=== PATIENT | female | born 2000 ===

== ENCOUNTER 2023-02-05 15:12 | Outpatient (REF) | payer MEDICAID, OTHER, SELFPAY ==
[2023-02-07 21:52] LABS: C. trachomatis RNA TMA NOT DETECTED (NOT DETECTED); Candida glabrata RNA NOT DETECTED (NOT DETECTED); Candida species RNA NOT DETECTED (NOT DETECTED); N. gonorrhoeae RNA TMA NOT DETECTED (NOT DETECTED); Trichomonas vaginalis RNA NOT DETECTED (NOT DETECTED)
[2023-02-13 17:29] LABS: HPV 16 RNA NOT DETECTED (NOT DETECTED); HPV mRNA E6/E7 rflx Detected (Not Detected)
== END 2023-02-05 15:13 | disposition home or self-care (01) ==
LOC: HO.HHCLNP 15:12
PROVIDERS: Visit Provider Internal Medicine
DX: R10.2 Pelvic and perineal pain (principal); N93.8 Other specified abnormal uterine and vaginal bleeding
CPT/HCPCS: 36415; 81513; 87481; 87491; 87591; 87624; 87625; 87661; 88142

== ENCOUNTER 2023-03-20 16:25 | Outpatient (REF) | payer MEDICAID, OTHER, SELFPAY ==
--- NOTE | ~2023-03-20 | US_ITS ---
EXAMINATION: US PELVIS CLINICAL INFORMATION: Dysfunctional uterine bleeding. Pelvic pain. Last menstrual period 2 weeks ago. IUD. COMPARISON: None available. TECHNIQUE: Ultrasound of the pelvis is performed using both transabdominal and transvaginal transducers along with Doppler. Transvaginal imaging is performed due to inadequate visualization transabdominally. FINDINGS: The uterus is heterogeneous and measures 7.9 x 3.8 x 5.6 cm. 2.4 x 1.7 x 2.0 cm left uterine fibroid. IUD within the endometrial cavity. Visualization of the endometrium is limited due to shadowing from the IUD. No significant free fluid. Left ovary measures 3.7 x 1.4 x 1.5 cm, volume 4.1 mL and is unremarkable. Right ovary measures 4.8 x 2.4 x 2.1 cm, volume 12.7 mL. Complex, thick-walled 1.8 x 1.5 x 2.0 cm right ovarian cyst, possibly a corpus luteum. US/US pelvic and transvaginal IMPRESSION: 1. 2.4 cm left uterine fibroid. 2. IUD within the endometrial cavity. Visualization of the endometrium is limited due to shadowing from the IUD. 3. Complex, thick-walled 1.8 x 1.5 x 2.0 cm right ovarian cyst, possibly a corpus luteum. Recommend followup ultrasound in 6-8 weeks.
== END 2023-03-20 16:26 | disposition home or self-care (01) ==
LOC: HO.US 16:25
PROVIDERS: Visit Provider Internal Medicine
DX: R10.2 Pelvic and perineal pain (principal); N93.8 Other specified abnormal uterine and vaginal bleeding
CPT/HCPCS: 76830; 76856

== ENCOUNTER 2023-05-22 16:05 | Outpatient (REF) | payer MEDICAID, OTHER, SELFPAY ==
--- NOTE | ~2023-05-22 | US_ITS ---
EXAMINATION: US PELVIS CLINICAL INFORMATION: Follow up ovarian cyst, IUD. Patient denies pain. COMPARISON: None available. TECHNIQUE: Ultrasound of the pelvis is performed using both transabdominal and transvaginal transducers along with Doppler. Transvaginal imaging is performed due to inadequate visualization transabdominally. FINDINGS: Uterus measures 8.6 x 3.4 x 6.3 cm, volume 96.45 mL. Previously identified 2.4 cm fibroid is not visualized on the current exam. IUD present in the endometrial cavity. Shadowing from the IUD limits visualization in the endometrium. Visualized endometrial thickness is 12 mm. Left ovary measures 2.9 x 2.3 x 1.7 cm, volume 5.94 mL and is unremarkable Right ovary measures 3.9 x 2.9 x 2.3 cm, volume 13.62 mL. Right ovarian 1.7 x 1.4 x 0.8 cm mildly complex cyst previously measured 1.8 x 1.5 x 2.0 cm and has decreased in size, characteristic of a resolving physiologic cyst such as a corpus luteum. No significant free fluid. US/US pelvic and transvaginal IMPRESSION: 1. Previously identified 2.4 cm fibroid is not visualized on the current exam. 2. IUD present within the endometrial cavity. Shadowing from the IUD limits visualization of the endometrium. Visualized endometrial thickness is 12 mm. 3. Right ovarian 1.7 x 1.4 x 0.8 cm mildly complex cyst previously measured 1.8 x 1.5 x 2.0 cm and has decreased in size, characteristic of a resolving physiologic cyst such as a corpus luteum. There is no specific indication for follow-up imaging at this time.
== END 2023-05-22 16:06 | disposition home or self-care (01) ==
LOC: HO.US 16:05
PROVIDERS: Visit Provider Family Medicine
DX: N83.201 Unspecified ovarian cyst, right side (principal)
CPT/HCPCS: 76830; 76856

== ENCOUNTER 2023-06-29 15:22 | Outpatient (REF) | payer MEDICAID, OTHER, SELFPAY ==
--- NOTE | ~2023-06-29 | US_ITS ---
EXAMINATION: US DIAGNOSTIC ULTRASOUND BREAST, LEFT CLINICAL INFORMATION: 22-year-old female with bilateral implants complaining of palpable abnormality left breast upper inner quadrant. COMPARISON: None available. TECHNIQUE: Ultrasound of the left breast is performed with real-time deutsch scale imaging and color Doppler. Attention was given to the upper inner quadrant in the region of palpable concern. FINDINGS: There is no focal suspicious finding. There is no solid mass, architectural abnormality, duct ectasia, or edema in the soft tissue planes. A left parasternal rib is noted, of which the patient stated was consistent with the palpable abnormality. This is normal anatomy. No definite implant complications identified. Results are discussed with the patient at time of visit. US/US breast LT limited mamm only IMPRESSION: No findings suspicious for malignancy. Palpable abnormality upper inner quadrant of the left breast appears to relate to a parasternal rib, normal anatomy. Recommend clinical management of the patient's symptomatology. ASSESSMENT: BI-RADS 1 - Negative RECOMMENDATION: 1. Patient should be managed based on the clinical impression.
== END 2023-06-29 15:23 | disposition home or self-care (01) ==
LOC: HO.MAMMO 15:22
PROVIDERS: PCP Family Medicine; Visit Provider Family Medicine
DX: N63.22 Unspecified lump in the left breast, upper inner quadrant (principal)
CPT/HCPCS: 76642

== ENCOUNTER → 2023-06-29 15:30 | Outpatient (BNV) | payer SELFPAY | PROVIDERS: PCP Family Medicine; Visit Provider Radiology Diagnostic Radiology | DX: N63.22 Unspecified lump in the left breast, upper inner quadrant (principal) | CPT/HCPCS: 76642 ==